=== PATIENT | male | born 1980 | race Caucasian/White ===

== ENCOUNTER 2021-01-17 21:29 | Emergency (ER) | payer OTHER, SELFPAY ==
[2021-01-17 22:18] VITALS: BP 165/105; PULSE 76; RESP 21; TEMP 36.6; O2SAT 99; BMI 21.9
[2021-01-17 22:30] VITALS: BP 122/83; PULSE 66; RESP 14; O2SAT 99
[2021-01-17 23:00] VITALS: BP 121/87; PULSE 69; RESP 17; O2SAT 99
--- NOTE | 2021-01-17 23:07 | CT_ITS ---
PROCEDURE: CT THORACIC SPINE WO/W CON CLINICAL HISTORY: weakness Weakness and numbness the waist down COMPARISON: No exams were available for comparison TECHNIQUE: Axial images obtained with sagittal and coronal reformats. All CT scans at the facility use one or more dose reduction, viz: automated exposure control, ma/kV adjustment per patient size (including targeted exams where dose is matched to indication, i.e. head), or iterative reconstruction technique. FINDINGS: There is normal alignment. No acute fracture or dislocation is evident. There is mild upper thoracic curvature convex left and midthoracic curvature convex right. Degenerative disc disease T5-T6 T7-T8: Degenerative disc disease with anterior osteophytes. T8-T9: Degenerative disc disease with Schmorl's node along the inferior endplate of T8 with osteosclerosis. Degenerative disc disease T9-T10 with Schmorl's node and endplate sclerosis. Degenerative disc disease T10-T11 with Schmorl's nodes and endplate sclerosis. IMPRESSION: 1. Multilevel thoracic spondylosis with scoliosis. 2. No acute fracture or dislocation or bony canal stenosis. Dictated by: Maximo Cook MD 01/18/2021 06:30 Maximo Cook MD in [facility] 01/18/2021 06:30
--- NOTE | 2021-01-17 23:07 | CT_ITS ---
PROCEDURE: CT LUMBAR SPINE WO/W CON CLINICAL HISTORY: weakness Numbness from the waist down COMPARISON: CT CT CERVICAL SPINE WO/W CON from 01/17/[address] THORACIC SPINE WO/W CON from 01/17/2021 TECHNIQUE: Axial images obtained with sagittal and coronal reformats. All CT scans at the facility use one or more dose reduction, viz: automated exposure control, ma/kV adjustment per patient size (including targeted exams where dose is matched to indication, i.e. head), or iterative reconstruction technique. FINDINGS: Normal alignment. No acute fracture or dislocation. No lytic or blastic change. Endplate Schmorl's nodes are present along the superior endplate of L1 and L2 with associated osteosclerosis. No canal stenosis. There is broad-based left paracentral and foraminal disc protrusion at L4-5 causing left-sided foraminal narrowing. There is bilateral sacroiliitis with osteosclerosis of both sacrum and ilium at the SI joints bilaterally. IMPRESSION: 1. Degenerative changes with Schmorl's nodes along the superior endplate of L1 and L2. 2. Small broad-based left paracentral and foraminal disc protrusion at L4-5 3. Sclerosis of the bilateral SI joints suggesting sacroiliitis Dictated by: Maximo Cook MD 01/18/2021 06:36 Maximo Cook MD in [facility] 01/18/2021 06:36
--- NOTE | 2021-01-17 23:07 | CT_ITS ---
PROCEDURE: CT CERVICAL SPINE WO/W CON CLINICAL INDICATION: weakness Weakness and numbness the waist down COMPARISON: No exams were available for comparison TECHNIQUE: Axial images obtained with sagittal and coronal reformats. All CT scans at the facility use one or more dose reduction, viz: automated exposure control, ma/kV adjustment per patient size (including targeted exams where dose is matched to indication, i.e. head), or iterative reconstruction technique. Axial spiral CT scanning performed of the cervical spine beginning at the base of the skull and continuing to the upper T-spine. 3-D multiplanar reconstruction with 3-D manipulation of volumetric data set in image rendering was completed by the radiologist and/or technologist with the supervision of the radiologist on independent workstation. FINDINGS: There is straightening/reversal of the normal lordosis which may be due to patient positioning or muscle spasm.. No fracture or dislocation. No lytic or blastic change. No significant degenerative change. No canal stenosis. Lung apices are clear. Scattered small nodes are present in the neck. There is prominence of the palatine tonsils and adenoids. IMPRESSION: No acute fracture or dislocation or canal stenosis. Reversal cervical lordosis. Dictated by: Maximo Cook MD 01/18/2021 06:26 Maximo Cook MD in [facility] 01/18/2021 06:26
--- NOTE | 2021-01-17 23:09 | XR_ITS ---
PROCEDURE: XR CHEST AP CLINICAL HISTORY: weakness COMPARISON: No exams were available for comparison FINDINGS: The cardiomediastinal silhouette and pulmonary vascularity are within normal limits. The lungs are clear without infiltrates, suspicious nodules, or pleural effusions. No acute bony abnormalities. IMPRESSION: No acute findings. Dictated by: Maximo Cook MD 01/18/2021 05:38 Maximo Cook MD in [facility] 01/18/2021 05:38
[2021-01-17 23:18] LABS: Basophils # 0.2 K/mm3 (0-0.2); Chloride 104 mmol/L (98-107); Eosinophils # 0.2 K/mm3 (0.0-0.4); Hematocrit 45.2 % (42.0-52.0); Hemoglobin 15.1 g/dL (14.1-18.0); Lymphocytes # 4.6 K/mm3 (0.7-4.5); Lymphocytes % 28.7 % (10-50); Mean Corpuscular HGB Conc 33.4 g/dL (31.8-35.4); Mean Corpuscular Hemoglobin 31.4 pg (27.0-31.2); Mean Platelet Volume 8.1 fl (7.4-10.4); Monocytes # 0.9 K/mm3 (0.1-1.0); Monocytes % 5.5 % (1.7-9.3); Neutrophils # 10.2 K/mm3 (1.8-7.8); Neutrophils % 63.8 % (37.0-80.0); Platelet Count 254 K/mm3 (142-424); Potassium 3.9 mmoL/L (3.5-5.1); Red Cell Distribution Width 13.5 % (11.5-17.5); Sodium 139 mmol/L (136-145)
[2021-01-17 23:20] LABS: MANUAL DIFFERENTIAL MANUAL DIFFERENTIAL (MANUAL DIFF)
[2021-01-17 23:21] LABS: Alanine Aminotransferase 14 U/L (12-78); Albumin Level 4.9 g/dl (3.5-5.0); Alkaline Phosphatase 94 U/L (38-126); Anion Gap 10.9 mEq/L (5-15); Aspartate Amino Transferase 28 U/L (17-59); Bilirubin,Direct 0.2 mg/dl (0.0-0.4); Bilirubin,Indirect 0.1 mg/dL (0.0-0.9); Bilirubin,Total 0.3 mg/dl (0.2-1.3); Bilirubin,Unconjugated 0.2 mg/dL (0.0-1.1); Blood Urea Nitrogen 16 mg/dl (9-20); Calcium 9.8 mg/dl (8.4-10.2); Carbon Dioxide 28 mmol/L (22.0-30.0); Creatinine Clearance Estimated 72 mL/min (50-200); Estimated Glomerular Filt Rate 66 ml/min (>60); GFR (African American) 80 ML/MIN (>60); Glucose 89 mg/dl (74-100); Total Protein,Serum 8.3 g/dl (6.3-8.2)
[2021-01-17 23:27] LABS: C-Reactive Protein 4.2 mg/L (0-4)
[2021-01-17 23:30] VITALS: BP 130/90; PULSE 70; RESP 18; O2SAT 98
[2021-01-17 23:40] LABS: Procalcitonin 0.034 ng/mL (0.0-2.0)
[2021-01-17 23:44] LABS: Microscopic, Urine URINE MICROSCOPIC (MICROSCOPIC)
--- NOTE | 2021-01-17 23:45 | HMH.EDWEAK ---
ED Disposition Clinical Impression: Paresthesia of both lower extremities Disposition: Home, Self-Care Condition on Discharge: Good Instructions: DI for Muscle Weakness Additional Instructions: see neuro at 1 pm Referrals: Alma Pool MD [Primary Care Provider] - Mercy Wilson MD [Staff Physician] - - Critical Care Critical Care Time: No Attestation: On 01/17/21, the high probability of a clinically significant, sudden or life threatening deterioration of the following system(s) required my full and direct attention, intervention and personal management. The time I documented below is in addition to time spent performing reported procedures but includes the following listed in this critical care notation. Medical Decision Making - Medical Records Medical records reviewed: Yes: I reviewed the patient's medical records. - Giuliano Inquiry Pt receiving controlled substance: No Vital Signs: 01/17/21 22:18 01/17/21 22:30 01/17/21 23:00 Temperature 98 F Temperature Source Oral Pulse Rate Pulse Rate [Right Brachial] 76 66 69 Respiratory Rate 21 14 17 Blood Pressure Blood Pressure [Right Arm] 165/105 H 122/83 121/87 Blood Pressure Mean Blood Pressure Mean [Right Arm] 125 96 98 Blood Pressure Source [Right Arm] Automatic Cuff Automatic Cuff Automatic Cuff Blood Pressure Position [Right Arm] Sitting Sitting Sitting 02 Sat by Pulse Oximetry 99 99 99 Oxygen Delivery Method Room Air Room Air 01/17/21 23:30 01/18/21 00:01 01/18/21 00:30 Temperature Temperature Source Pulse Rate Pulse Rate [Right Brachial] 70 65 65 Respiratory Rate 18 18 14 Blood Pressure Blood Pressure [Right Arm] 130/90 132/90 132/79 Blood Pressure Mean Blood Pressure Mean [Right Arm] 103 104 96 Blood Pressure Source [Right Arm] Automatic Cuff Automatic Cuff Automatic Cuff Blood Pressure Position [Right Arm] Sitting Sitting Sitting 02 Sat by Pulse Oximetry 98 98 99 Oxygen Delivery Method Room Air Room Air Room Air 01/18/21 01:00 01/18/21 01:30 01/18/21 02:00 Temperature Temperature Source Pulse Rate Pulse Rate [Right Brachial] 61 62 61 Respiratory Rate 18 18 18 Blood Pressure Blood Pressure [Right Arm] 135/89 139/90 145/94 H Blood Pressure Mean Blood Pressure Mean [Right Arm] 104 106 111 Blood Pressure Source [Right Arm] Automatic Cuff Automatic Cuff Blood Pressure Position [Right Arm] Sitting Sitting 02 Sat by Pulse Oximetry 99 99 98 Oxygen Delivery Method Room Air Room Air Room Air 01/18/21 02:30 01/18/21 03:00 01/18/21 03:30 Temperature Temperature Source Pulse Rate Pulse Rate [Right Brachial] 67 64 55 L Respiratory Rate 17 16 15 Blood Pressure Blood Pressure [Right Arm] 134/87 128/82 122/80 Blood Pressure Mean Blood Pressure Mean [Right Arm] 102 97 94 Blood Pressure Source [Right Arm] Automatic Cuff Automatic Cuff Automatic Cuff Blood Pressure Position [Right Arm] Sitting Sitting Sitting 02 Sat by Pulse Oximetry 97 98 96 Oxygen Delivery Method Room Air Room Air Room Air 01/18/21 03:32 01/18/21 03:45 01/18/21 04:00 Temperature Temperature Source Pulse Rate Pulse Rate [Right Brachial] Respiratory Rate Blood Pressure Blood Pressure [Right Arm] Blood Pressure Mean Blood Pressure Mean [Right Arm] Blood Pressure Source [Right Arm] Blood Pressure Position [Right Arm] 02 Sat by Pulse Oximetry 96 98 97 Oxygen Delivery Method 01/18/21 04:15 01/18/21 04:20 01/18/21 05:53 Temperature Temperature Source Pulse Rate 54 L Pulse Rate [Right Brachial] Respiratory Rate Blood Pressure 109/73 L 109/73 L Blood Pressure [Right Arm] Blood Pressure Mean 88 Blood Pressure Mean [Right Arm] Blood Pressure Source [Right Arm] Blood Pressure Position [Right Arm] 02 Sat by Pulse Oximetry 97 94 L 98 Oxygen Delivery Method 01/18/21 05:55 01/18/21 06:00 01/18/21 06:05 Temperature Temperatu
[2021-01-17 23:51] LABS: Appearance,Urine CLEAR (Clear); Bilirubin,Urine Negative (Negative); Blood, Urine Negative (Negative); Color,Urine YELLOW (Yellow); Glucose,Urine (UA) Negative (Negative); Ketones,Urine Negative (Negative); Leukocyte Esterase,Urine Negative (Negative); Nitrate,Urine Negative (Negative); Protein,Urine Negative (Negative); Specific Gravity, Urine 1.015 (1.005-1.030); Urobilinogen,Urine 0.2 EU/dl (0.2)
[2021-01-17 23:54] LABS: Erythrocyte Sedimentation Rate 9 mm/hr (0-15)
[2021-01-18] VITALS (47 sets, daily range): BP systolic 103–145; BP diastolic 65–94; PULSE 54–67; RESP 14–20; TEMP 36.7; O2SAT 94–99
[2021-01-18 00:05] LABS: Eosinophils % 1 % (0-3); Lymphocytes % 30 % (10-50); Monocytes % 5 % (2-9); Neutrophils % 62 % (42-76); Platelet Estimate Normal; Total Cells Counted 100
[2021-01-18 00:06] LABS: Stomatocytes 1+
--- NOTE | 2021-01-18 00:06 | XR_ITS ---
PROCEDURE: XR PELVIS 1-2V CLINICAL INDICATION: weakness COMPARISON: No exams were available for comparison TECHNIQUE: XR Pelvis AP View FINDINGS: No fracture or dislocation is evident. No significant degenerative change. Contrast is present within the urinary bladder and renal collecting system. IMPRESSION: No acute findings. Dictated by: Maximo Cook MD 01/18/2021 05:38 Maximo Cook MD in [facility] 01/18/2021 05:38
[2021-01-18 00:23] LABS: Bacteria,Urine Trace /lpf; WBC,Urine Occasional #/hpf (0-3)
[2021-01-18 01:24] LABS: Lactic Acid 0.7 mmol/L (0.7-2.1)
--- NOTE | 2021-01-18 05:28 | PC.NURSE ---
anesthesiology at bedside performing lumbar puncture
--- NOTE | 2021-01-18 05:57 | P.PN_ITS ---
[facility] Anesthesia Checklist - Patient Identification Patient Identification: Arm Band - Structural Data Admitted From: Home Planned Operative Procedure/s: Lumbar puncture Consent for Planned Operative Procedure(s) Verified: Yes - Neurological Assessment Level of Consciousness: Awake, Alert, Appropriate Hx Seizures: No Numbness or tingling in extremities: Yes (Bilateral LE) - Anesthesia Plan Anesthesia Risk discussed: Yes Anesthesia Plan: Verified ASA Class: I Anesthesia Type: Local [facility] History I have reviewed the patient's past medical history: Yes *Have you ever received a pneumonia vaccine?: Yes *Have you received a flu vaccine this season?: Yes Anesthesia experience/problems:: None - *Social History Smoking Status: Current every day smoker Tobacco Type: cigarettes Substance Use Type: denies use *Occupational Status:: employed *Travel in the last 8 weeks: None Family Hx:: Unable to obtain
[2021-01-18 06:41] LABS: Glucose,CSF 62 mg/dl (40-70)
[2021-01-18 07:09] LABS: Appearance,CSF Clear (Clear); Red Blood Cell,CSF 68 cells/uL (0); Volume,CSF 10 mL; White Blood Cell,CSF 1 cells/uL (0-5)
[2021-01-18 08:34] LABS: Mononuclear WBCs,CSF 0 %; Polynuclear WBCs,CSF 2 %
[2021-01-20 15:38] LABS: Cryptococcus Antigen, CSF Negative (Negative)
[2021-01-20 19:44] LABS: CAP Mandated Reflex to Culture Not Indicated (.)
[2021-01-21 12:59] LABS: Enterovirus,CSF PCR Negative (Negative); Epstein-Barr Virus CSF/WB PCR Negative (Negative)
[2021-01-21 17:14] LABS: Albumin, CSF 12 mg/dL (11-48)
== END 2021-01-18 08:42 | disposition home or self-care (01) ==
PROVIDERS: Emergency Provider Emergency Medicine; PCP Family Medicine
DX: R20.2 Paresthesia of skin (principal); G04.91 Myelitis, unspecified; G06.2 Extradural and subdural abscess, unspecified; Z20.822 Contact with and (suspected) exposure to COVID-19
CPT/HCPCS: 71045; 72127; 72130; 72133; 72170; 80048; 80076; 81001; 82042; 82945; 83605; 84145; 84155; 85007; 85025; 85651; 86140; 87040; 87070; 87205; 87498; 87798; 87899; 89051; 96365; 99284; Q9967; U0003

== ENCOUNTER 2021-01-18 16:13 | Outpatient (CLI) | payer OTHER, SELFPAY ==
[2021-01-18 16:35] VITALS: BP 124/85; PULSE 69; RESP 18; TEMP 36.7; O2SAT 98
--- NOTE | 2021-01-18 17:19 | MR_ITS ---
PROCEDURE: MR THORACIC SPINE WO CON CLINICAL INDICATION: eval for transverse myelitis Numbness from the waist down COMPARISON: CT CT THORACIC SPINE WO/W CON from 01/17/2021 TECHNIQUE: Routine multiplanar multi echo sequences are performed without gadolinium enhancement. FINDINGS: There is normal alignment. The spinal cord ends at the L1-L2 level. There is mild degenerative disc disease from T8-L2. Type 1 endplate changes are present along the inferior endplate of T8 at T9 and T10 interspace and T10-T11 interspace with Schmorl's nodes at T10-T11 along the superior endplate of L1 with type 1 endplate changes at T12-L1 There is a small focus of increased T2 signal within the cord at the T9 level.. This is not causing any cord expansion. This area measures approximately 8 mm. The cord has an otherwise unremarkable appearance. There is slightly heterogeneous T2 hyperintense posterior epidural fluid collection extending from T2 to the T10 level measuring up to 6 mm in maximum AP dimension causing some minimal anterior displacement of the thoracic cord with multilevel central canal stenosis. IMPRESSION: 1. Heterogeneous T2 hyperintense posterior epidural fluid collection from T2-T10 measuring up to 6 mm in maximum AP dimension. Differential diagnosis includes epidural abscess or hematoma. This is causing anterior displacement of the cord with multilevel canal stenosis. 2. Small focus of increased cord signal at T9. This is nonspecific and could be inflammatory/infectious. Follow-up suggested to confirm resolution. 3. Multilevel thoracic spondylosis with degenerative disc disease and Schmorl's nodes. Dictated by: Maximo Cook MD 01/19/2021 12:22 Maximo Cook MD in [facility] 01/19/2021 12:22
[2021-01-18 17:25] VITALS: BP 132/87; PULSE 66; RESP 18
[2021-01-18 18:31] LABS: Vitamin B12 227 pg/mL (239-931)
[2021-01-18 18:32] LABS: Folate 3.18 ng/mL
== END 2021-01-18 17:25 | disposition home or self-care (01) ==
PROVIDERS: Nurse Practitioner Family; PCP Family Medicine; Visit Provider Specialist
DX: G04.91 Myelitis, unspecified (principal); R20.2 Paresthesia of skin; R20.8 Other disturbances of skin sensation; R29.2 Abnormal reflex
CPT/HCPCS: 72146; 82525; 82607; 82746; 86618

== ENCOUNTER 2021-01-18 20:43 | Emergency (ER) | payer OTHER, SELFPAY ==
[2021-01-18 21:06] VITALS: BP 127/87; PULSE 84; RESP 18; TEMP 36.6; O2SAT 98; BMI 23.1
--- NOTE | 2021-01-18 22:05 | PC.NURSE ---
paged [facility] for this patient at this time.
--- NOTE | 2021-01-18 22:12 | HMH.EDNEU ---
ED Disposition Clinical Impression: Epidural abscess, Paresthesia of both lower extremities, Spinal cord compression Disposition: Xfer Short-Term Hosp Condition on Discharge: Good Instructions: DI for Low Back Pain Referrals: Alma Pool MD [Primary Care Provider] - Forms: Transfer Record - ED - Critical Care Critical Care Time: No Attestation: On 01/18/21, the high probability of a clinically significant, sudden or life threatening deterioration of the following system(s) required my full and direct attention, intervention and personal management. The time I documented below is in addition to time spent performing reported procedures but includes the following listed in this critical care notation. Medical Decision Making - Medical Records Medical records reviewed: Yes: I reviewed the patient's medical records. - Giuliano Inquiry Pt receiving controlled substance: No Vital Signs: 01/18/21 21:06 Temperature 97.8 F Temperature Source Oral Pulse Rate [Right Brachial] 84 Respiratory Rate 18 Blood Pressure [Right Arm] 127/87 Blood Pressure Mean [Right Arm] 100 Blood Pressure Source [Right Arm] Automatic Cuff Blood Pressure Position [Right Arm] Sitting 02 Sat by Pulse Oximetry 98 Oxygen Delivery Method Room Air - Physician Consults Physician Consulted: bashir - ortho spine Reason -: Transfer to another facilty Neuro HPI - General Chief Complaint: Back Pain/Injury Stated Complaint: Numb from waist down Time Seen by Provider: 01/18/21 21:30 Mode of Arrival: Family Vehicle Source of Information: Patient, Medical Record Limitations: No Limitations Description of Symptoms (Recalled from ER Triage Doc. by RN): was advised to come back to the ed for eval and possible transfer to [facility]; was seen in the ed last night for weakness progressing from feet to waist over course of last 5 days, then after eval in ed, was sent to neuro onsite who obtained an MRI of his spine, and it was found he had a tumor that previous radiologic exams had not seen. - History of Present Illness HPI Narrative: pt was seen last pm with progressive parasthesia and weakness to bilat lower ext ascending to genital and rectal area - no fever/viral illness or vaccine and no iv drug use - no cognitive changes and no upper ext changes - he had ed eval last pm with neg ct of spine and labs ok and neg lumbar puncture- he was seen by neuro who obtained mri t spine which showed epidural fluid- abscess vs hematoma with cord compression - no new sx tonight - no bladder or stool incont Onset (ago): day(s) Timing confirmed by: family member Severity: moderate Quality: tingling, constant Context: gradual onset On Anticoagulants: No Associated symptoms: denies other symptoms Treatments Prior to Arrival: other (steroids ) - Related Data Home Medications: Home Medications Medication Instructions Recorded Confirmed acetaminophen 325 mg capsule 325 mg PO QID PRN 01/18/21 01/18/21 Previous Rx's Medication Instructions Recorded methylprednisolone sod suc(PF) 1,000 mg IV DAILY 5 Days #40 each 01/18/21 1,000 mg/8 mL intravenous solution Allergies/Adverse Reactions: Allergies Allergy/AdvReac Type Severity Reaction Status Date / Time NO KNOWN ALLERGIES - NKA Allergy Unknown Uncoded 10/23/17 15:14 Stroke Alert/NIH Score - LOC Stroke Alert: No [facility] History - Hepatitis A Screen Drug use history?: No High risk sexual behaviors?: No History of sexually transmitted infection?: No Currently employed?: No Childcare worker?: No Do you have indoor plumbing?: Yes Do you have electricity?: Yes Attestation statement:: This patient has been screened for Hepatitis A risk factors. I have reviewed the patient's past medical history: Yes Medical History: Denies:: Seizures Other Surgeries: Yes: No Previous Surgery Amputation: No Fractures: No - Social History Smoking Status: Current every day smoker Tobacco Type: cigare
[2021-01-18 22:57] VITALS: BP 125/78; PULSE 73; RESP 18; TEMP 37; O2SAT 98
[2021-01-18 23:04] LABS: Basophils % 0.1 % (0.1-2.0); Chloride 104 mmol/L (98-107); Eosinophils % 0.1 % (0.1-12.0); Hemoglobin 15.1 g/dL (14.1-18.0); Lymphocytes % 6.3 % (10-50); Mean Corpuscular HGB Conc 33.5 g/dL (31.8-35.4); Mean Corpuscular Volume 92.3 fl (80-94); Mean Platelet Volume 8.9 fl (7.4-10.4); Monocytes # 0.3 K/mm3 (0.1-1.0); Monocytes % 1.8 % (1.7-9.3); Neutrophils # 14.6 K/mm3 (1.8-7.8); Neutrophils % 91.7 % (37.0-80.0); Platelet Count 275 K/mm3 (142-424); Potassium 3.6 mmoL/L (3.5-5.1); Red Blood Count 4.87 M/mm3 (4.60-6.20); Red Cell Distribution Width 13.5 % (11.5-17.5); Sodium 141 mmol/L (136-145); White Blood Count 15.9 K/mm3 (4.8-10.8)
[2021-01-18 23:06] LABS: MANUAL DIFFERENTIAL MANUAL DIFFERENTIAL (MANUAL DIFF)
[2021-01-18 23:07] LABS: Anion Gap 17.6 mEq/L (5-15); Blood Urea Nitrogen 20 mg/dl (9-20); Carbon Dioxide 23 mmol/L (22.0-30.0); Creatinine Clearance Estimated 102 mL/min (50-200); Estimated Glomerular Filt Rate 93 ml/min (>60); GFR (African American) 112 ML/MIN (>60)
[2021-01-18 23:08] LABS: Calcium 10.2 mg/dl (8.4-10.2); Glucose 160 mg/dl (74-100)
[2021-01-18 23:13] LABS: C-Reactive Protein 2.4 mg/L (0-4)
[2021-01-18 23:32] LABS: Erythrocyte Sedimentation Rate 8 mm/hr (0-15)
[2021-01-18 23:35] LABS: Lymphocytes % 9 % (10-50); Monocytes % 2 % (2-9); Neutrophils % 89 % (42-76); Total Cells Counted 100
[2021-01-18 23:36] LABS: Platelet Estimate Normal; RBC Morphology Normal
== END 2021-01-18 23:29 | disposition short-term general hospital (02) ==
PROVIDERS: Emergency Provider Emergency Medicine; PCP Family Medicine
DX: G06.2 Extradural and subdural abscess, unspecified (principal); F17.210 Nicotine dependence, cigarettes, uncomplicated; F12.10 Cannabis abuse, uncomplicated
CPT/HCPCS: 80048; 85007; 85025; 85651; 86140; 99283

== ENCOUNTER 2023-02-03 13:42 | Emergency (ER) | payer OTHER, SELFPAY ==
[2023-02-03 13:43] VITALS: BP 120/89; PULSE 73; RESP 18; TEMP 36.8; O2SAT 98; BMI 24.2
--- NOTE | 2023-02-03 14:11 | XR_ITS ---
PROCEDURE INFORMATION: Exam: XR Left Finger(s) Exam date and time: 02/03/2023 2:09 PM Age: 42 years old Clinical indication: Injury or trauma; Other: Smashed finger; Blunt trauma (contusions or hematomas); Left; Middle finger; Additional info: Smashed it TECHNIQUE: Imaging protocol: Radiologic exam of the left fingers. Views: Minimum 2 views. COMPARISON: No relevant prior studies available. FINDINGS: Bones/joints: No acute fracture. No dislocation. Soft tissues: Normal. IMPRESSION: No acute findings.
--- NOTE | 2023-02-03 14:32 | EXP.UTC ---
Discharge Plan Disposition Patient Disposition: Home, Self-Care Condition: Good Prescriptions Prescriptions: No Action acetaminophen [Tylenol] 325 mg capsule 325 mg PO QID PRN methylprednisolone sod suc(PF) 1,000 mg/8 mL recon soln 1,000 mg IV DAILY 5 Days Qty: 40 0RF Rx Instructions: IV daily x 5 days to be given in [facility], written order faxed to Infusion Center. Spoke with Maria Luz. Referrals Follow up/Referrals: Yeison Lyn MD [Primary Care Provider] - See instructions Activity Restrictions/Add. Instructions Additional Instructions/Restrictions: rest Ice with cold pack for 20 minutes remove may repeat for comfort every hour Ibuprofen every 6 hours as needed for pain or inflammation. If needs something more you can take Tylenol every 4 hours as needed as long as her primary care has told he was okayed for you to take both. Follow-up immediately if new or worsening symptoms or no noticeable improvement over the next 3-5 days. call ortho Clinical Impressions Clinical Impression: Strain of finger of left hand Instructions Patient Instructions: DI for Muscle Strain Discharge ED Provider: Michell ([facility])[employer] [facility] [place] HPI General Stated complaint: [id number] middle finger,left hand Mode of Arrival: Ambulatory Source of Information: Patient Limitations: No Limitations Time Seen by Provider: 02/03/23 14:32 Description of Symptoms (Recalled from Triage Doc. by RN): C/O LEFT MIDDLE FINGER CAUGHT IN A TILLER WHEEL. HEENT Symptoms (Recalled from RN notes): No Resp Symptoms (Recalled from RN notes): No Skin Symptoms (Recalled from RN notes): No MS Symptoms (Recalled from RN notes): No Functional Status (Recalled from RN notes): NA History of Present Illness Provider Complaint: 42 yr old male presents for left middle finger pain after getting it caught in a wheel Related Data Home Medications Medication Instructions Recorded Confirmed acetaminophen 325 mg capsule 325 mg PO QID PRN 01/18/21 01/18/21 (Tylenol) Previous Rx's Medication Instructions Recorded methylprednisolone sod suc(PF) 1,000 mg (8 mL) IV DAILY ascending 01/18/21 1,000 mg/8 mL intravenous solution transverse myelitis, parasthesia 5 days #40 ea Allergies Allergy/AdvReac Type Severity Reaction Status Date / Time NO KNOWN ALLERGIES - NKA Allergy Unknown Uncoded 10/23/17 15:14 Worker's Comp Is this a Worker's Comp case?: No [facility] Disclaimer: The information contained in this section may have been updated after the patient was seen, as this information can be updated by other users. Social History , [employer]) Smoking Status: Current every day smoker tobacco type: cigarettes alcohol intake: never substance use type: marijuana current occupational status: employed Travel in the last 8 weeks: None household members: spouse and children housing: other ROS Obtained: Yes All systems reviewed & no additional complaints except as documented Constitutional Constitutional: Reports system reviewed and no additional complaints, except as documented and Reports as per HPI Eyes Eyes: Reports system reviewed and no additional complaints, except as documented ENT Ears, Nose, Mouth, and Throat: Reports system reviewed and no additional complaints, except as documented Cardiovascular Cardiovascular: Reports system reviewed and no additional complaints, except as documented Respiratory Respiratory: Reports system reviewed and no additional complaints, except as documented Gastrointestinal Gastrointestingal: Reports system reviewed and no additional complaints, except as documented Musculoskeletal Musculoskeletal: Reports system reviewed and no additional complaints, except as documented, Reports as per HPI and Reports arthralgias Integumentary/Breasts Skin/Breast: Reports system reviewed and no additional complaints, except as documented Neuro
[2023-02-03 14:47] VITALS: BP 120/89; PULSE 73; RESP 18; TEMP 36.8; O2SAT 98
--- NOTE | 2023-02-03 14:51 | PC.NURSE ---
FINGER SPLINT APPLIED TO LEFT MIDDLE FINGER AT THIS TIME
== END 2023-02-03 14:52 | disposition home or self-care (01) ==
PROVIDERS: Emergency Provider Nurse Practitioner Family; PCP Family Medicine
DX: S63.613A Unspecified sprain of left middle finger, initial encounter (principal); F17.210 Nicotine dependence, cigarettes, uncomplicated; W23.0XXA Caught, crushed, jammed, or pinched between moving objects, initial encounter
CPT/HCPCS: 73140; 99212; G0463